=== PATIENT | female | born 1980 | race Caucasian/White ===

== ENCOUNTER 2021-02-13 18:24 | Inpatient (IN) | payer OTHER ==
[~2021-02-13] VITALS: Ht 157.5 cm; Wt 119.3 kg
[~2021-02-13 18:24] MED LIST: FLAGYL500 MG PO; NOHOMEMEDICATIONS; VANCOMYCIN PO; VICODIN PO; ZOFRAN ODT4 MG PO
[2021-02-13 18:36] VITALS: BP 110/82
[2021-02-13] MEDS ORDERED: PROAIR HFA8.5 GM (19:00)
[2021-02-13 19:59] LABS: ABSOLUTE NEUTROPHILS 2.4 thou/uL (1.4-8.2); BASOPHILS 0.2 % (0.0-2.0); EOSINOPHILS 0.1 % (0.0-3.0); HEMATOCRIT 38.7 % (37.0-47.0); HEMOGLOBIN 12.9 gm/dL (12.0-15.0); LYMPHOCYTES 33.3 % (24.0-44.0); MCH 29.4 pg (26.0-34.0); MCHC 33.2 g/dL (28.0-37.0); MCV 88.5 fL (80.0-100.0); MONOCYTES 8.7 % (1.0-8.0); PLATELET COUNT 160 thou/uL (150-400); POLYS 57.7 % (36.0-66.0); RBC 4.38 mil/uL (4.20-5.00); RDW 13.7 % (10.5-14.5); WBC 4.2 thou/uL (4.0-11.0)
[2021-02-13 20:03] LABS: CALCIUM 7.9 mg/dL (8.5-10.1); CREATININE 0.7 mg/dL (0.6-1.0); POTASSIUM 3.6 mmol/L (3.5-5.1)
[2021-02-13 20:09] LABS: TOTAL BILIRUBIN 0.6 mg/dL (0.2-1.0); TOTAL PROTEIN 6.9 g/dL (6.4-8.2)
[2021-02-14] VITALS (8 sets, daily range): BP systolic 86–119; BP diastolic 46–74
[2021-02-14 04:03] LABS: CALCIUM 7.7 mg/dL (8.5-10.1); CREATININE 0.7 mg/dL (0.6-1.0); POTASSIUM 3.7 mmol/L (3.5-5.1)
--- NOTE | 2021-02-14 06:57 | NUR ---
ASSUME CARE 1900. PT/VITALS STABLE. DENIES ANY PAIN. UP AD ABELARDO. ASSESSMENT CHARTED. PROGRESSING WELL WITH POC. NO DISTRESS NOTED THROUGH THE NIGHT. 2LNC WITH SATS IN HIGH 90s. PLAN IS TO CONITNUE TO MONITOR FOR WORSENING COVID SYMPTOMS AND POSSIBLE DISCHARGE TODAY, IF PT IS STABLE. WILL CONTINUE TO MONITOR AND FOLLOW WITH POC
--- NOTE | 2021-02-14 10:59 | NUR ---
INITIAL ASSESSMENT: SW reviewed chart and spoke with nursing and attending physician. Pt was admitted from home due to COVID. Pt placed in Enhanced Isolation. Pt had positive COVID test prior to admission. Pt has not received a COVID vaccination. Pt is afebrile and on 2L of O2. Pt is completing course of Remdesivir. SW placed call to pt's room. No answer. SW left voice message on listed contact number for pt: [phone]. Per chart, pt is alert/orientated x 4. Pt lives at home. Pt's PCP is listed as Dr. Madison Walden. Pt is listed as not having health insurance. [employer] to screen pt for assistance with Medicaid application. Plan is for pt to discharge home when medically stable. SW is following to assist as needed with discharge planning.
--- NOTE | 2021-02-14 11:27 | EKG ---
[facility] [place] [address] ELECTROCARDIOGRAM REPORT Name: MYCHAL AWAD Room #: 349-I [address]M IN [facility]#: [id number] Admission: 02/13/21 Attend Phys: Navya Stoner MD Discharge: Date of : 76 Report #: [id number] [facility] ED Test Date: 2021-02-13 Test Time: 22:20:29 Pat Name: MYCHAL AWAD Department: Room: [facility] Gender: F Adult School Counselor: silverio : 1980 Requested By: Yuki Hdez Order Number: [id number] MD: Nima Delgado Measurements Intervals Gilman Rate: 73 P: 45 PA: 184 QRS: 3 QRSD: 102 T: -2 QT: 383 QTc: 422 Interpretive Statements Sinus rhythm Probable left atrial enlargement Low voltage, precordial leads Borderline T abnormalities, inferior leads Baseline wander in lead(s) V5,V6 No previous ECG available for comparison Electronically Signed On 02-14-2021 11:26:34 CDT by Nima Delgado [email or web address] <ELECTRONICALLY SIGNED> By: Nima Delgado MD, [facility] 02/14/21 1126 19 19 Nima Delgado MD, [facility] /EPI
--- NOTE | 2021-02-15 00:26 | NUR ---
ASSESSMENT DONE. PT A&OX4 94%ON RA ENCOURAGED INCENTIVE SPIROMETER USE. IV INTACT AND REMDESIVIR GIVEN. UP AD ABELARDO IN THE ROOM ISOLATION MAINTAINED. NO FURTHER SIGNS OF DISCOMFORT WILL CONT TO MONITOR.
--- NOTE | 2021-02-15 00:32 | NUR ---
ASSESSED AT START OF SHIFT 1900. PT IN BED SLEEPING WOKE UP LATER TEARFUL STATEING HE WANTS TO GO HOME. XANAX AND TRAZODONE GIVEN. IV REMDESIVIR GIVEN. PT PULLED OUT IV. NEW IV INSERTED 22 G IN LEFT HAND. FALL PREC IN PLACE UP WITH STAND BY AND VOIDS VIA URINAL. PRIOR TO MIDNIGHT PT STATES HE WANTS TO GO HOME, TEARFUL AND CRYING OUT, REQUESTING SOMETHING TO SLEEP. ONCALL ACCOUNTS RECEIVABLE SPECIALIST NOTIFIED AND ONETIME ATIVAN GIVEN. COVID ISOLATION MAINTAINED. PT ON 4L OF O2 WILL CONT TO MONITOR.
[2021-02-15 05:12] VITALS: BP 95/54
[2021-02-15 05:22] LABS: ALBUMIN 2.8 g/dL (3.4-5.0); ANION GAP 9 mmol/L (7-16); BUN 15 mg/dL (7-18); CALCIUM 8.2 mg/dL (8.5-10.1); CHLORIDE 103 mmol/L (98-107); CO2 26 mmol/L (21-32); CREATININE 0.6 mg/dL (0.6-1.0); DIRECT BILIRUBIN < 0.1 mg/dL (<0.1-0.2); GLUCOSE 182 mg/dL (74-106); PHOSPHORUS 2.3 mg/dL (2.5-4.9); POTASSIUM 3.7 mmol/L (3.5-5.1); SGOT 27 U/L (15-37); SGPT 33 U/L (30-65); SODIUM 138 mmol/L (136-145); TOTAL BILIRUBIN 0.3 mg/dL (0.2-1.0); TOTAL PROTEIN 6.5 g/dL (6.4-8.2)
[2021-02-15 08:00] VITALS: BP 106/54
--- NOTE | 2021-02-15 08:38 | HC ---
[facility] [place] [address] [place] [address] CONSULTATION Name: MYCHAL AWAD Room #: 349-I ADM IN ..#: [id number] Admission: 02/13/21 Attend Phys: Navya Stoner MD Discharge: Date of : 76 Report #: [id number] THIS REPORT FOR: cc: Madison Walden Christine L. DO Barry, Joseph W. MD ~ DATE OF SERVICE: 02/14/2021 INFECTIOUS DISEASE CONSULTATION ATTENDING PHYSICIAN: Dr. Stoner. REASON FOR EVALUATION: Pneumonitis due to COVID-19 infection. HISTORY OF PRESENT ILLNESS: Chart reviewed and the patient examined. This is a 40-year-old woman with obesity, otherwise generally healthy, who presented to the Emergency Room with complaints of progressive dyspnea, nausea, with intractable emesis, diarrhea over the course of last several days prior to her presentation, has had headache and some fevers as well. Had been diagnosed with COVID-19 infection 6 days prior, felt to be exposure at work. She notes that she had slightly diminished oxygen saturations out in the mid 90s, has been taking erythromycin and albuterol. Initial evaluation did show chest x-ray with bilateral multifocal infiltrates consistent with COVID. CRP was elevated at 52.7. D-dimer 0.35. Procalcitonin less than 0.05. She was empirically started on remdesivir, vitamins and dexamethasone. She currently feels better today. She is maintained on room air at this point. ALLERGIES: HYDROMORPHONE, METOCLOPRAMIDE. CURRENT MEDICATIONS: Include citalopram, ascorbic acid, enoxaparin, dexamethasone, famotidine, zinc, alprazolam, acetaminophen and remdesivir. PAST MEDICAL HISTORY: Two children, tubal ligation, previous cholecystectomy. SOCIAL HISTORY: Nonsmoker, no ethanol, no illicit drug use. FAMILY HISTORY: Noncontributory. REVIEW OF SYSTEMS: Otherwise, unremarkable 10-point review of systems. PHYSICAL EXAMINATION: GENERAL: Alert, cooperative, pleasant, in moderate distress. Does have mild paroxysms of coughing during the visit. Otherwise, well nourished. She is lucid. VITAL SIGNS: Temperature 97.4, pulse 55, respirations 16, blood pressure 96/51. SKIN: Warm, dry, no rashes. [facility] [address] [place] [address] CONSULTATION Name: MYCHAL AWAD [facility].#: [id number] Admission: 02/13/21 Attend Phys: Navya Stoner MD Discharge: Date of : 76 Report #: [id number] HEENT: Normocephalic. Extraocular muscles intact. NECK: Supple. LUNGS: Diminished breath sounds. Few scattered crackles at the bases posteriorly. HEART: Borderline bradycardic, regular, I do not appreciate murmur. ABDOMEN: Obese, somewhat firm, nontender. EXTREMITIES: No cyanosis. GENITOURINARY AND RECTAL: Deferred. LABORATORY DATA: Electrolytes: Sodium 137, potassium 3.7, chloride 102, bicarbonate 27, anion gap of 8, BUN and creatinine 15 and 0.7. As described above, procalcitonin less than 0.05. D-dimer 0.35. CRP of 52.7. test was negative. Troponin 6. Liver functions unremarkable. Albumin 3.0, total protein 6.9. Estimated GFR of 92. CBC: White count of 4.2, H and H 12.9 and 38.7, platelets of 160. Chest x-ray as described above. ASSESSMENT AND PLAN: COVID-19 infection, complicated by pneumonitis. The patient had generalized systemic signs and symptoms including fevers, GI related complaints. On admission, these seem to have improved, had received one dose of remdesivir, corticosteroids. At this point, I would not initiate any antibacterials. We will continue current therapy, I am not sure we need to complete a 5-day course for remdesivir if she is otherwise doing well. Encouraged to increase activity. We will add incentive spirometry. Monitor expectantly. <ELECTRONICALLY SIGNED> By: Luis Teran MD 02/15/21 0838 [id number] [id number] Luis Teran MD /nt
[2021-02-15] MEDS ORDERED: PEPCID20 MG PO (12:49)
[2021-02-15] MEDS ORDERED: ACEROLA C500 MG PO (12:49)
[2021-02-15] MEDS ORDERED: DECADRON6 MG PO (12:49)
[2021-02-15] MEDS ORDERED: ZINC SULFATE50 MG PO (12:49)
[2021-02-15 12:55] VITALS: BP 106/54
--- NOTE | 2021-02-15 12:58 | NUR ---
DISCHARGE NOTE: SW reviewed chart and spoke with nursing and attending physician. Pt remains in Enhanced Isolation due to COVID. Pt is medically stable for discharge home today. SW spoke with pt via phone to provide update and discuss discharge plan. Introduced role of SW. Pt is alert/orientated x 4. Pt reports she lives at home in [place], [place], with her boyfriend. Prior to admission, pt was independent with ADLs. No use of DME. Pt is employed at the [employer] in [place]. Pt states she does have health insurance, but does not have her insurance card with her. Per pt, the insurance recently changed and she has her card at home. Pt's PCP is Dr. Madison Walden. Pt uses the [facility] in [place]. SW placed contact info for Admitting/Registration and SW in pt's discharge summary for pt to contact to provide insurance info. Pt's boyfriend will provide transportation home. NITHIN updated pt's nurse. No additional SW needs identified at this time, but is available to assist should needs arise.
[2021-02-15 14:04] VITALS: BP 106/54
--- NOTE | 2021-02-15 15:48 | NUR ---
DISCHARGE INSTRUCTION AND NEW MED INFO WENT THROUGH WITH PT. DENIES ANY QUESTIONS. IV AND TELE D/C. ALL BELONGINGS WITH PT. PT TAKEN DOWN TO RIDE
== END 2021-02-15 14:44 | disposition home or self-care (01) | DRG 177 ==
LOC: ER 18:24 → EROBS 22:26 → 3W 02-14 00:39
PROVIDERS: Nurse Practitioner Family; ADMIT Internal Medicine; ATTEND Internal Medicine
PROC: XW033E5 Introduction of Remdesivir Anti-infective into Peripheral Vein, Percutaneous Approach, New Technology Group 5 (ICD-10-PCS; principal; 2021-02-14)
DX: U07.1 COVID-19 (principal); J96.01 Acute respiratory failure with hypoxia; J12.82 Pneumonia due to coronavirus disease 2019; Z68.42 Body mass index [BMI] 45.0-49.9, adult; E66.9 Obesity, unspecified; F32.A Depression, unspecified; F41.9 Anxiety disorder, unspecified; Z90.49 Acquired absence of other specified parts of digestive tract; Z88.5 Allergy status to narcotic agent; Z28.21 Immunization not carried out because of patient refusal; Z88.8 Allergy status to other drugs, medicaments and biological substances
CPT/HCPCS: 10080